=== PATIENT | male | born 1980 | race African-American/Black ===

== ENCOUNTER 2017-12-10 10:50 | Emergency (ER) | payer OTHER ==
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
[2017-12-10] MEDS ORDERED: OXYCODONE-ACETAMINOPHEN 5-325 MG TABLET PO ONE (12:06)
[2017-12-10] MEDS ORDERED: DIPH/PERTUSS(ACELL)/TETANUS VAC/PF 0.5 ML SYR (>=10YO) IM ONE (12:06)
[2017-12-10] MEDS ORDERED: LIDOCAINE 5% (700 MG) TRANSDERMAL ADH..PATCH TP ONE (12:07)
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
--- NOTE | 2017-12-10 13:17 | EKG REPORT ---
SEVERITY:- NORMAL ECG - SINUS RHYTHM : Confirmed by: Amina Dickson MD 10-Dec-2017 13:15:29
[2017-12-10 14:13] VITALS: BP 126/66
== END 2017-12-10 13:57 | disposition home or self-care (01) ==
LOC: ER 10:50
DX: S29.011A Strain of muscle and tendon of front wall of thorax, initial encounter (principal); S40.812A Abrasion of left upper arm, initial encounter; S20.212A Contusion of left front wall of thorax, initial encounter; V28.4XXA Motorcycle driver injured in noncollision transport accident in traffic accident, initial encounter; Y92.410 Unspecified street and highway as the place of occurrence of the external cause; Z86.14 Personal history of Methicillin resistant Staphylococcus aureus infection; F17.200 Nicotine dependence, unspecified, uncomplicated
CPT/HCPCS: 71046; 90471; 90715; 93005; 93010; 99284

== ENCOUNTER 2017-12-18 15:55 | Emergency (ER) | payer OTHER ==
[2017-12-18 16:05] VITALS: BP 135/80
--- NOTE | 2017-12-18 18:31 | RADIOLOGY REPORT (SQ) ---
EXAM DESCRIPTION: HAND LEFT 3 VIEWS COMPLETED DATE/TIME: 12/18/2017 6:05 pm REASON FOR STUDY: left thumb pain COMPARISON: None. EXAM PARAMETERS: NUMBER OF VIEWS: Three views. TECHNIQUE: AP, lateral and oblique radiographic images acquired of the left hand. LIMITATIONS: None. FINDINGS: MINERALIZATION: Normal. BONES: Cannot exclude a minimal fracture involving the head of the 1st metacarpal. This is only seen on a single view. JOINTS: No effusions. SOFT TISSUES: No soft tissue swelling. No foreign body. OTHER: No other significant finding. IMPRESSION: Cannot exclude a minimal fracture involving the head of the 1st metacarpal. TECHNICAL DOCUMENTATION: JOB ID: [id number] [employer]- All Rights Reserved Reading location - IP/workstation name: [email or web address]
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
== END 2017-12-18 20:00 | disposition home or self-care (01) ==
LOC: ER 15:55
DX: M79.642 Pain in left hand (principal); M79.641 Pain in right hand; S40.812D Abrasion of left upper arm, subsequent encounter; V49.9XXD Car occupant (driver) (passenger) injured in unspecified traffic accident, subsequent encounter; Z86.14 Personal history of Methicillin resistant Staphylococcus aureus infection
CPT/HCPCS: 99283